=== PATIENT | female | born 1985 | race African-American/Black ===

== ENCOUNTER 2017-04-15 16:51 | Emergency (ER) | payer MEDICAID, OTHER ==
[~2017-04-15] VITALS: Ht 152.4 cm; Wt 58.0 kg
[~2017-04-15 16:51] MED LIST: CYCL-36 PO; DICL75 PO; DOXY100T PO; FLAG500T PO; FLUC100T2 PO
[2017-04-15 16:52] VITALS: BP 125/82; PULSE 85; RESP 16; TEMP 98.4; O2SAT 98
--- NOTE | 2017-04-15 18:23 | PD ---
HPI . right upper tooth pain x 1 day Chief Complaint: Oral / Dental Pain or Problem Time Seen by Provider: 18:23 Travel History International Travel<30 days: No Contact w/Intl Traveler<30days: No Traveled to known affect area: No History of Present Illness HPI 31 yr old female here with c/o tooth pain to her upper right sided molar for 1 day. She denies any fever, chills or facial swelling. PFSH Past Medical History Diminished Hearing: No Reproductive: Yes (PID Bacterial Vaginosis) Ulcer: Yes (stomach) ?: Not LMP: 03/25/17 : 5 Para: 5 Miscarriage: 0 : 0 Ovarian Cysts: Yes Social History Alcohol Use: No Tobacco Use: No Substance Use: No Allergies-Medications (Allergen,Severity, Reaction): Coded Allergies: No Known Allergies (Verified , 09/27/15) Reported Meds & Prescriptions Reported Meds & Active Scripts Active Flexeril (Cyclobenzaprine HCl) 10 Mg Tab 10 Mg PO TID PRN Diclofenac Sodium 75 Mg Tab 75 Mg PO BID Fluconazole 100 Mg Tab 150 Mg PO ONCE Reported Doxycycline Hyclate 100 mg (Doxycycline Hyclate) 100 Mg Tab 100 Mg PO BID Flagyl (Metronidazole) 500 Mg Tab 500 Mg PO TID Review of Systems General / Constitutional: No: Fever Eyes: No: Visual changes HENT: Positive: Dental Difficulties, No: Headaches Cardiovascular: No: Chest Pain or Discomfort Respiratory: No: Shortness of Breath Gastrointestinal: No: Abdominal Pain Genitourinary: No: Dysuria Musculoskeletal: No: Pain Skin: No Rash Neurologic: No: Weakness Psychiatric: No: Depression Endocrine: No: Polydipsia Hematologic/Lymphatic: No: Easy Bruising Physical Exam Narrative GENERAL: AAO x 3, no acute distress, Well-nourished, well-developed patient. SKIN: Warm and dry. No visible rashes or bruising. HEAD: Normocephalic and atraumatic. EYES: No scleral icterus. No injection or drainage. ENT: No nasal drainage noted. Mucous membranes pink. Airway patent. #2 with what appears to be cavity NECK: Supple, trachea midline. No JVD. CARDIOVASCULAR: Regular rate and rhythm without murmurs, gallops, or rubs. RESPIRATORY: Breath sounds equal bilaterally. No accessory muscle use. No rhonchi or rales. GASTROINTESTINAL: visual inspection normal EXTREMITIES: No cyanosis or edema. BACK: No obvious deformity. NEURO: CN II-12 intact, PSYCH: AAO x 3, normal affect. Data Data Last Documented VS Vital Signs Date Time Temp Pulse Resp B/P (MAP) Pulse Ox O2 Delivery O2 Flow Rate FiO2 04/15/17 16:52 98.4 85 16 125/82 (96) 98 MDM Medical Decision Making Medical Screen Exam Complete: Yes Emergency Medical Condition: No Medical Record Reviewed: Yes Differential Diagnosis dentalgia, cavity, less likely oral abscess Narrative Course A medical screening exam was performed: At the time of evaluation the presenting medical condition was determined not to be of an emergent nature. The patient was given the option of receiving additional care, but declined. Patient was given options for additional community resources from which to obtain care. The Patient Has Been advised to seek medical attention for their presenting complaint. The patient has been advised to return to the ER at any time if an emergent condition develops. Diagnosis Primary Impression: Encounter for medical screening examination Condition: Stable Elvia Gandhi Apr 15, 2017 18:23
== END 2017-04-15 18:53 | disposition left against medical advice (07) ==
LOC: NEPD 16:51
DX: K02.9 Dental caries, unspecified (principal)
CPT/HCPCS: 99281